=== PATIENT | female | born 1960 | race Two or more races ===

== ENCOUNTER 2020-01-31 14:17 | Inpatient (IN) | payer OTHER ==
[~2020-01-31] VITALS: Ht 162.6 cm; Wt 97.3 kg
[2020-01-31 15:15] LABS: Basophils # (auto) 0 10 ^3/uL (0-0.2); Basophils % (auto) 0.4 % (0.0-2.0); Eosinophils # (auto) 0 10 ^3/uL (0-0.8); Eosinophils % (auto) 0.3 % (0.0-7.0); Hematocrit 37.9 % (36.0-46.0); Hemoglobin 13.2 g/dL (12.2-16.2); Lymphocytes # (auto) 1.4 10 ^3/uL (0.4-5.4); Lymphocytes % (auto) 18.4 % (10.0-50.0); Mean Corpuscular Hemoglobin 30.5 pg (28.0-32.0); Mean Corpuscular Hgb Conc. 34.8 g/dL (32.0-36.0); Mean Corpuscular Volume 87.6 fL (80.0-100.0); Monocytes # (auto) 0.4 10 ^3/uL (0-1.3); Monocytes % (auto) 4.9 % (0.0-12.0); Neutrophils # (auto) 5.9 10 ^3/uL (1.6-8.6); Nucleated Red Blood Cells % 0.1 %; Platelet Count (auto) 239 10^3/uL (140-450); Red Blood Cells 4.33 10^6/uL (4.0-5.20); White Blood Cell 7.8 10^3/uL (4.4-10.8)
[2020-01-31 15:29] LABS: Alanine Aminotransferase 43 U/L (13-56); Albumin 3.6 g/dL (3.4-5.0); Anion Gap 6 (5-15); Aspartate Aminotransferase 26 U/L (15-37); Blood Urea Nitrogen 13 mg/dL (7-18); Calcium 8.2 mg/dL (8.5-10.1); Carbon Dioxide 30 mmol/L (21-32); Chloride 100 mmol/L (98-107); GFR African American 92 mL/min; GFR Non-African American 76 mL/min; Glucose 170 mg/dL (74-106); Magnesium 2.2 mg/dL (1.6-2.6); Sodium 136 mmol/L (136-145)
[2020-01-31 15:33] LABS: Alkaline Phosphatase 126 U/L (45-117); Bilirubin, Total 0.3 mg/dL (0.2-1.0); Total Protein 8.4 g/dL (6.4-8.2)
[2020-01-31 15:37] LABS: Potassium 2.7 mmol/L (3.5-5.1)
[2020-01-31] MEDS ORDERED: FUROSEMIDE 40 MG/4 ML VIAL IV ONE (15:45)
[2020-01-31] MEDS ORDERED: POTASSIUM EFFERVESENT TAB 25 MEQ PO ONE (16:00)
[2020-01-31] MEDS ORDERED: AML5T PO (18:11)
[2020-01-31] MEDS ORDERED: CYAN100L PO (18:13)
[2020-01-31] MEDS ORDERED: ATOR20TA50 PO (18:13)
[2020-01-31] MEDS ORDERED: METO-159 PO (18:13)
[2020-01-31] MEDS ORDERED: HCTZ25T PO (18:13)
[2020-01-31] MEDS ORDERED: DOCU-94 PO (18:13)
[2020-01-31] MEDS ORDERED: MORPHINE SULF INJ 2 MG/ML SYRINGE 1ML IV PRN (18:30)
[2020-01-31] MEDS ORDERED: HYDROcodone-ACET 10/325MG TAB PO PRN (18:30)
[2020-01-31] MEDS ORDERED: NITROGLYCERIN 0.4 MG SL TAB SL PRN (18:30)
[2020-01-31] MEDS ORDERED: POTASSIUM CHL 20 Meq TABLET PO ONE (20:00)
[2020-01-31 21:00] VITALS: BP 155/63
[2020-01-31] MEDS: HCTZ 25 MG TAB PO SCH (21:55)
[2020-01-31] MEDS: DOCUSATE SOD 100 MG CAP PO SCH (21:55)
[2020-01-31] MEDS: POTASSIUM CHL 20 Meq TABLET PO SCH (21:56)
[2020-01-31] MEDS: ATORVASTATIN 20 MG TAB PO SCH (21:56)
[2020-01-31] MEDS: METOPROLOL TARTRATE 50 MG TAB PO SCH (21:56)
[2020-02-01 05:31] VITALS: BP 133/61
[2020-02-01] MEDS: HCTZ 25 MG TAB PO SCH ×3 (06:00→22:25)
[2020-02-01 09:00] VITALS: BP 129/70
[2020-02-01] MEDS: ENOXAPARIN SOD 40 MG/0.4 ML SYRINGE SC SCH (10:00)
[2020-02-01] MEDS ORDERED: amLODIPine BESYLATE 5 MG TAB PO SCH (10:00)
[2020-02-01] MEDS: METOPROLOL TARTRATE 50 MG TAB PO SCH ×2 (10:00→22:26)
[2020-02-01] MEDS: POTASSIUM CHL 20 Meq TABLET PO SCH ×2 (10:04→22:25)
[2020-02-01] MEDS: dilTIAZem 120MG ER CAP PO SCH (10:05)
[2020-02-01 13:00] VITALS: BP 133/76
[2020-02-01 16:58] VITALS: BP 138/69
[2020-02-01] MEDS: DOCUSATE SOD 100 MG CAP PO SCH (22:25)
[2020-02-01] MEDS: ATORVASTATIN 20 MG TAB PO SCH (22:25)
[2020-02-01 22:28] VITALS: BP 139/57
[2020-02-02 05:17] VITALS: BP 109/55
[2020-02-02] MEDS: HCTZ 25 MG TAB PO SCH ×3 (05:42→23:01)
[2020-02-02 06:11] LABS: BUN/Creatinine Ratio 24.3; Calcium 8.4 mg/dL (8.5-10.1); Potassium 3.6 mmol/L (3.5-5.1)
[2020-02-02 08:00] VITALS: BP 132/57
[2020-02-02 08:34] VITALS: BP 132/57
[2020-02-02] MEDS: ENOXAPARIN SOD 40 MG/0.4 ML SYRINGE SC SCH (10:00)
[2020-02-02] MEDS: dilTIAZem 120MG ER CAP PO SCH (10:48)
[2020-02-02] MEDS: METOPROLOL TARTRATE 50 MG TAB PO SCH ×2 (10:49→23:03)
[2020-02-02] MEDS: POTASSIUM CHL 20 Meq TABLET PO SCH ×2 (10:49→23:02)
[2020-02-02] MEDS: PANTOPRAZOLE 40 MG TAB PO SCH (10:49)
[2020-02-02 13:00] VITALS: BP 139/56
[2020-02-02 16:45] VITALS: BP 127/57
[2020-02-02 21:46] VITALS: BP 141/57
[2020-02-02] MEDS: DOCUSATE SOD 100 MG CAP PO SCH (23:00)
[2020-02-02] MEDS: ATORVASTATIN 20 MG TAB PO SCH (23:02)
[2020-02-03 04:50] VITALS: BP 129/66
[2020-02-03] MEDS: HCTZ 25 MG TAB PO SCH ×3 (05:42→22:37)
[2020-02-03 08:00] VITALS: BP 140/50
[2020-02-03 09:00] VITALS: BP 140/50
[2020-02-03] MEDS: POTASSIUM CHL 20 Meq TABLET PO SCH ×2 (09:44→22:37)
[2020-02-03] MEDS: dilTIAZem 120MG ER CAP PO SCH ×2 (09:44→10:00)
[2020-02-03] MEDS: METOPROLOL TARTRATE 50 MG TAB PO SCH ×3 (09:44→22:38)
[2020-02-03] MEDS: PANTOPRAZOLE 40 MG TAB PO SCH (09:44)
[2020-02-03] MEDS: ENOXAPARIN SOD 40 MG/0.4 ML SYRINGE SC SCH (09:45)
[2020-02-03 13:00] VITALS: BP 139/56
[2020-02-03 17:00] VITALS: BP 132/57
[2020-02-03 21:00] VITALS: BP 162/73
[2020-02-03] MEDS: DOCUSATE SOD 100 MG CAP PO SCH (22:36)
[2020-02-03] MEDS: ATORVASTATIN 20 MG TAB PO SCH (22:38)
[2020-02-04 05:00] VITALS: BP 126/52
[2020-02-04] MEDS: HCTZ 25 MG TAB PO SCH ×2 (05:21→14:00)
[2020-02-04 09:00] VITALS: BP 116/51
[2020-02-04] MEDS: ENOXAPARIN SOD 40 MG/0.4 ML SYRINGE SC SCH (10:00)
[2020-02-04] MEDS: PANTOPRAZOLE 40 MG TAB PO SCH (10:35)
[2020-02-04] MEDS: dilTIAZem 120MG ER CAP PO SCH (10:35)
[2020-02-04] MEDS: METOPROLOL TARTRATE 50 MG TAB PO SCH (10:35)
[2020-02-04] MEDS: POTASSIUM CHL 20 Meq TABLET PO SCH (10:35)
[2020-02-04 13:00] VITALS: BP 119/46
[2020-02-04] MEDS ORDERED: DILT120C12 PO (14:59)
[2020-02-04 15:06] VITALS: BP 116/51
== END 2020-02-04 15:47 | DRG 313 ==
LOC: EEVIPCON 14:17 → ER 14:17 → EDBD 14:17 → TELE 14:18 → TELE-WESTW 20:49
PROVIDERS: ADMIT Internal Medicine; ATTEND Internal Medicine
DX: R07.89 Other chest pain (principal); E87.6 Hypokalemia; E78.5 Hyperlipidemia, unspecified; I10 Essential (primary) hypertension; F41.9 Anxiety disorder, unspecified; E66.9 Obesity, unspecified; Z68.36 Body mass index [BMI] 36.0-36.9, adult; Z82.3 Family history of stroke; Z90.721 Acquired absence of ovaries, unilateral; Z88.6 Allergy status to analgesic agent; Z88.0 Allergy status to penicillin
CPT/HCPCS: 36415; 71045; 80048; 80053; 83036; 83735; 83880; 84443; 84484; 85025; 93005; 93017; G0378